=== PATIENT | female | born 1965 | race Caucasian/White ===

== ENCOUNTER 2016-11-20 21:00 | Emergency (ER) | payer OTHER ==
[~2016-11-20] VITALS: Ht 167.6 cm; Wt 108.9 kg
--- NOTE | 2016-11-20 21:10 | ED MVC/FALL/TRAUMA COMPLAINT ---
History of Present Illness General Chief Complaint: Fall Stated Complaint: FALL/ BACK PAIN/ LOWER ABD PAIN Source: patient Exam Limitations: no limitations Vital Signs & Intake/Output Vital Signs & Intake/Output Vital Signs Date Time Temp Pulse Resp B/P Pulse O2 O2 Flow FiO2 Ox Delivery Rate 11/20 2212 98.7 100 20 148/88 97 Room Air ED Intake and Output 11/21 0000 11/20 1200 Intake Total 0 Output Total Balance 0 Intake, Oral 0 Patient 240 lb Weight Allergies Coded Allergies: Penicillins (RASH, HIVES ALL OVER 11/20/16) Reconcile Medications Albuterol Sulfate (Proair Hfa) 90 MCG HFA.AER.AD 2 PUF INH PRN RESPIRATORY ( Reported) Cholecalciferol (Vitamin D3) (Vitamin D) (Unknown Strength) TABLET (Unknown Dose) PO DAILY SUPPLEMENT (Reported) Ibuprofen 800 MG TABLET 1 TAB PO TID PRN pain Levonorgestrel (Mirena) 20 MCG/24 HOUR (5 YEARS) IUD MENSTRUAL CYCLE (Reported) Multivitamin (Multi-Day Vitamins) 1 EACH TABLET 1 TAB PO DAILY SUPPLEMENT ( Reported) Naproxen/Esomeprazole Mag (Vimovo Dr 500-20 MG Tablet) 500 MG-20 MG TAB.IR.DR 1 TAB PO PRN PAIN (Reported) Oxycodone HCl/Acetaminophen (Percocet 5-325 MG Tablet) 5 MG-325 MG TABLET 1 TAB PO 4XDP PRN PAIN TEN...[id number] Ranitidine (Ranitidine HCl) 150 MG TABLET 1 TAB PO PRN GI (Reported) Triage Note: PT TO ED FOR A FALL, REPORTS SHE MISSED A STEP WHILE TRYING TO GO TO THE BATHROOM. NO CERVICAL POINT TENDERNESS, NO LOC, C/O PELVIC PAIN WELL. Triage Nurses Notes Reviewed? yes Onset: Abrupt Duration: minute(s): Timing: single episode today Severity: moderate Injuries/Fall Location: lower back, left groin Method of Injury: fall Loss of Consciousness: no loss of consciousness Modifying Factors: Improves With: rest. Worsens With: movement. Associated Symptoms: pain in lower back and left groin HPI: 51 yo woman fell forward, "I missed a step," while trying to go to the bathroom. She notes, "My head grazed the wall, and then I fell backwards on my back." No LOC. No neck pain She notes increased pain in lower back and lower pelvis, with difficulty ambulating. She notes no headache, neck pain, chest pain. She is otherwise well. Past History Travel History Traveled to [place] past 21 day No Medical History Any Pertinent Medical History? see below for history Surgical History Surgical History: none Psychosocial History What is your primary language Persian Family History Hx Contributory? No Review of Systems Review of Systems Constitutional: Reports: no symptoms. Eyes: Reports: no symptoms. Ears, Nose, Throat, Mouth: Reports: no symptoms. Respiratory: Reports: no symptoms. Cardiovascular: Reports: no symptoms. Gastrointestinal/Abdominal: Reports: no symptoms. Genitourinary: Reports: no symptoms. Musculoskeletal: Reports: no symptoms. Skin: Reports: no symptoms. Neurological/Psychological: Reports: no symptoms. All Other Systems: Reviewed and Negative Physical Exam Physical Exam General Appearance: well developed/nourished, mild distress Head: atraumatic, normal appearance Eyes: Bilateral: normal appearance. Ears, Nose, Throat, Mouth: hearing grossly normal Neck: normal inspection, supple, full range of motion, no midline tenderness Respiratory: normal breath sounds, chest non-tender, no respiratory distress, quiet respiration, lungs clear Cardiovascular: regular rate/rhythm Gastrointestinal: normal bowel sounds, soft, non-tender, no organomegaly Back: normal inspection, muscle spasm, no vertebral tenderness Extremities: normal range of motion, pain elicited with left hip abduction. no focal tenderness. no edema Neurologic/Psych: no motor/sensory deficits, awake, alert, oriented x 3 Skin: intact Core Measures ACS in differential dx? No Severe Sepsis Present: No Septic Shock Present: No Progress Differential Diagnosis: fx vs sprain vs other. Plan of Care: Orders Procedure Date/time Status Durable Medical Equipment 11/21 247 Active Durable Medical Equipment 11/20 2250 Active Current Medications Sig/Nicolas Start time Last Medication Dose Stop Time Status Admin Hydromorphone HCl 1 MG ONCE ONE 11/21 299 UNVr (Dilaudid) 11/21 300 Oxycodone/ 2 TAB ONCE ONE 11/21 299 CANr Acetaminophen 11/21 300 (Percocet) Diagnostic Imaging: Viewed by Me: Radiology Read. Discussed w/RAD: Radiology Read. Radiology Impression: ls spine / ap pelvis... no fx... full report below. , LEFT HIP... NO FX... DJD NOTED... FULL REPORT BELOW. Comments: PATIENT: MARIANNA JACKSON PRESENT AGE: 51 PATIENT ACCOUNT NO: [id number] : 65 LOCATION: [facility] ORDERING PHYSICIAN: PAVEL AGUILA MD SERVICE DATE: 11/20/16 EXAM TYPE: CAT - CT LOWER EXT WO IV CONTRAST EXAMINATION: CT LOWER EXTREMITY WITHOUT CONTRAST, LEFT CLINICAL INFORMATION: Left hip pain COMPARISON: Pelvic x-ray from earlier today TECHNIQUE: No intravenous contrast was utilized. Multidetector helical imaging was performed through the left hip. Coronal and sagittal reformatted images were created. DLP: 1066.58 mGy-cm. FINDINGS: Alignment across the left hip is anatomic. There is degenerative change along the posterior hip with joint space narrowing and acetabular spurring. No evidence of acute fracture. Degenerative change is noted at the pubic symphysis. No significant soft tissue abnormality is seen. No acute findings identified in the included internal structures of the pelvis. IMPRESSION: No evidence of fracture. Mild degenerative change of the left hip. DICTATED BY: SCOTT LOCKWOOD MD DATE/TIME DICTATED:11/21/16118 CAN DRYER:MICHAEL DATE/TIME TRANSCRIBED:11/21/16118 CONFIDENTIAL, DO NOT COPY WITHOUT APPROPRIATE AUTHORIZATION. <Electronically signed in Other Vendor System> SIGNED BY: SCOTT LOCKWOOD MD 11/21/16129 PATIENT: MARIANNA JACKSON PRESENT AGE: 51 PATIENT ACCOUNT NO: [id number] : 65 LOCATION: [facility] ORDERING PHYSICIAN: PAVEL AGUILA MD SERVICE DATE: 11/20/16 EXAM TYPE: RAD - XRY-AP PELVIS; XRY-LUMBOSACRAL SPINE 4 VIEWS EXAMINATION: LUMBOSACRAL SPINE, 4 VIEWS, AP PELVIS, SINGLE VIEW CLINICAL INFORMATION: Status post lower back pain and pelvic pain after fall COMPARISON: None. FINDINGS: Pelvis: The femoral heads appear normally located within the acetabulum. The joint spaces are maintained and symmetric. There is mild sclerosis at the level of the pubic symphysis. The ilioischial and iliopectineal lines appear intact. The sacroiliac joints are symmetric. Lumbar spine: There are 5 lumbar type vertebral bodies. The vertebral bodies appear maintained. There are mild diffuse endplate changes. The intervertebral disc spaces are maintained. No fracture or subluxation. IMPRESSION: No radiographic evidence for acute injury to the pelvis or lumbar spine. DICTATED BY: YASMANI YANCEY MD DATE/TIME DICTATED:11/20/162208 CAN DRYER:MICHAEL DATE/TIME TRANSCRIBED:11/20/162208 CONFIDENTIAL, DO NOT COPY WITHOUT APPROPRIATE AUTHORIZATION. <Electronically signed in Other Vendor System> SIGNED BY: YASMANI YANCEY MD 11/20/16 8035 Departure Departure Disposition: HOME OR SELF CARE Condition: Stable Clinical Impression Primary Impression: Fall Secondary Impressions: Back pain, Contusion Referrals: JOHN WOLFF,MOUNIKA Kraft (PCP/Family) Departure Forms: Customer Survey General Discharge Information Prescriptions: Current Visit Scripts Ibuprofen 1 TAB PO TID PRN pain #60 TAB Ref 1 Oxycodone HCl/Acetaminophen (Percocet 5-325 MG Tablet) 1 TAB PO 4XDP PRN PAIN #10 TAB TEN...[id number] Comments 11/21/16, 2:58am... ct scan, xrays benign... pt safe for discharge with crutches.... pt will follow up with ortho.
--- NOTE | 2016-11-20 22:15 | RADIOLOGY REPORT ---
EXAMINATION: LUMBOSACRAL SPINE, 4 VIEWS, AP PELVIS, SINGLE VIEW CLINICAL INFORMATION: Status post lower back pain and pelvic pain after fall COMPARISON: None. FINDINGS: Pelvis: The femoral heads appear normally located within the acetabulum. The joint spaces are maintained and symmetric. There is mild sclerosis at the level of the pubic symphysis. The ilioischial and iliopectineal lines appear intact. The sacroiliac joints are symmetric. Lumbar spine: There are 5 lumbar type vertebral bodies. The vertebral bodies appear maintained. There are mild diffuse endplate changes. The intervertebral disc spaces are maintained. No fracture or subluxation. IMPRESSION: No radiographic evidence for acute injury to the pelvis or lumbar spine.
[2016-11-20] MEDS ORDERED: MULTI-DAY VITA1 EACH PO (22:31)
[2016-11-20] MEDS ORDERED: VIMOVO DR 500-1 EACH PO (22:32)
[2016-11-20] MEDS ORDERED: RANITIDINE HCL150 MG PO (22:32)
[2016-11-20] MEDS ORDERED: MIRENA1 EACH (22:33)
[2016-11-20] MEDS ORDERED: VITAMIN D2000 UNI1 PO (22:33)
[2016-11-20] MEDS ORDERED: PROAIR HFA8.5 GM INH (22:34)
--- NOTE | 2016-11-21 01:30 | CT SCAN REPORT ---
EXAMINATION: CT LOWER EXTREMITY WITHOUT CONTRAST, LEFT CLINICAL INFORMATION: Left hip pain COMPARISON: Pelvic x-ray from earlier today TECHNIQUE: No intravenous contrast was utilized. Multidetector helical imaging was performed through the left hip. Coronal and sagittal reformatted images were created. DLP: 1066.58 mGy-cm. FINDINGS: Alignment across the left hip is anatomic. There is degenerative change along the posterior hip with joint space narrowing and acetabular spurring. No evidence of acute fracture. Degenerative change is noted at the pubic symphysis. No significant soft tissue abnormality is seen. No acute findings identified in the included internal structures of the pelvis. IMPRESSION: No evidence of fracture. Mild degenerative change of the left hip.
[2016-11-21] MEDS ORDERED: IBUPROFEN800 M1 PO (02:49)
[2016-11-21] MEDS ORDERED: PERCOCET 5-3251 EACH PO (02:49)
[2016-11-21 03:08] VITALS: BP 146/88
== END 2016-11-21 03:09 ==
LOC: ERH 21:00
DX: S30.0XXA Contusion of lower back and pelvis, initial encounter (principal); W10.9XXA Fall (on) (from) unspecified stairs and steps, initial encounter
CPT/HCPCS: 72110; 72170; 96372; J1885